=== PATIENT | male | born 1965 | race Caucasian/White ===

== ENCOUNTER 2017-06-18 21:41 | Inpatient (IN) | payer OTHER ==
[~2017-06-18] VITALS: Ht 180.3 cm; Wt 80.8 kg
[~2017-06-18 21:41] MED LIST: AMITRIPTYLINE H10 M1 PO; AMITRIPTYLINE H50 MG PO; CIPROFLOXACIN500 M1 PO; METHOCARBAMOL750 MG PO; OXYCONTIN10 MG PO; PERCOCET 10-321 EACH PO; PERCOCET 10/1 TABLET PO; VOLTAREN75 MG PO; ZOFRAN4 MG PO
[2017-06-18 22:28] LABS: HEMATOCRIT 35.5 % (38.0-50.0); HEMOGLOBIN 12.6 G/DL (12.5-16.6); MCH 30.1 PG (29.0-34.0); MCHC 35.5 G/DL (30.0-36.0); MCV 84.9 FL (86-99); PLATELET COUNT 206 K/uL (156-360); RBC DIS.WIDTH-CV 13.6 % (11.8-14.6); RBC DIS.WIDTH-SD 42.5 % (39-53); RED BLOOD COUNT 4.18 M/uL (4.00-5.50); WHITE BLOOD COUNT 10.3 K/uL (4.1-10.2)
[2017-06-18 22:36] LABS: ALBUMIN 3.1 g/dL (3.2-4.8); CHLORIDE 97 mEq/L (99-109); SODIUM 130 mEq/L (136-147)
[2017-06-18 22:38] LABS: GLUCOSE 128 mg/dL (70-99); TOTAL PROTEIN 6.5 g/dL (6.4-8.3)
[2017-06-18 22:40] LABS: TOTAL BILIRUBIN 0.5 mg/dL (0.0-1.0)
[2017-06-18 22:42] LABS: ALKALINE PHOSPHATASE 102 IU/L (3-129); CREATININE 13.4 mg/dL (0.6-1.3); GFR ESTIMATE (CALCULATED) 4 mL/min/ (58.99-99999)
[2017-06-18 22:43] LABS: AST (GOT) 14 IU/L (2-34)
[2017-06-18 22:45] LABS: ALT (GPT) 28 IU/L (3-49)
[2017-06-18 23:00] LABS: POTASSIUM 7.8 mEq/L (3.7-5.4); UREA NITROGEN (BUN) 100 mg/dL (9-23)
[2017-06-18 23:23] LABS: CREATINE KINASE 100 IU/L (1-294); TOTAL CK 100 IU/L (1-294)
[2017-06-18 23:29] LABS: CHLORIDE 99 mEq/L (99-109)
[2017-06-18 23:29] LABS: TROP-I INTERPRETATION NEGATIVE; TROPONIN-I 0.02 ng/mL (0.0-0.30)
[2017-06-18 23:30] LABS: SODIUM 130 mEq/L (136-147)
[2017-06-18 23:30] LABS: CK-MB 1.3 ng/mL (0.0-4.9); CKMB RELATIVE INDEX 1.3 (0.0-3.9)
[2017-06-18 23:31] LABS: GLUCOSE 130 mg/dL (70-99)
[2017-06-18 23:35] LABS: CREATININE 13.6 mg/dL (0.6-1.3); GFR ESTIMATE (CALCULATED) 4 mL/min/ (58.99-99999)
[2017-06-18 23:36] LABS: POTASSIUM 7.8 mEq/L (3.7-5.4); UREA NITROGEN (BUN) 105 mg/dL (9-23)
[2017-06-19 00:55] LABS: CHLORIDE 100 mEq/L (99-109); SODIUM 133 mEq/L (136-147)
[2017-06-19 00:56] LABS: MAGNESIUM 1.8 mg/dL (1.3-2.7)
[2017-06-19 01:01] LABS: CREATININE 13.7 mg/dL (0.6-1.3); GFR ESTIMATE (CALCULATED) 4 mL/min/ (58.99-99999); SERUM ETHYL ALCOHOL < 10 mg/dL
[2017-06-19 01:04] LABS: CREATINE KINASE 90 IU/L (1-294)
[2017-06-19 01:08] LABS: UREA NITROGEN (BUN) 105 mg/dL (9-23)
[2017-06-19 01:09] LABS: GLUCOSE 66 mg/dL (70-99); POTASSIUM 7.1 mEq/L (3.7-5.4)
[2017-06-19 01:57] VITALS: BP 129/57
[2017-06-19 05:08] VITALS: BP 121/58
[2017-06-19 05:58] LABS: HEMATOCRIT 29.6 % (38.0-50.0); MCH 29.1 PG (29.0-34.0); MCHC 33.8 G/DL (30.0-36.0); PLATELET COUNT 170 K/uL (156-360); RBC DIS.WIDTH-CV 13.8 % (11.8-14.6); RBC DIS.WIDTH-SD 43.5 % (39-53); RED BLOOD COUNT 3.44 M/uL (4.00-5.50); WHITE BLOOD COUNT 8.4 K/uL (4.1-10.2)
[2017-06-19 06:03] LABS: CREATININE 13.3 MG/DL (0.6-1.3); GFR ESTIMATE (CALCULATED) 4 mL/min/ (58.99-99999); SODIUM 133 MEQ/L (136-147); UREA NITROGEN (BUN) 97 mg/dL (9-23)
[2017-06-19 06:04] LABS: ALBUMIN 2.4 G/DL (3.2-4.8); CHLORIDE 97 MEQ/L (99-109); GLUCOSE 181 mg/dL (70-99); PHOSPHORUS 6.7 mg/dL (2.5-4.9)
[2017-06-19 06:07] LABS: POTASSIUM 6.7 MEQ/L (3.7-5.4)
[2017-06-19 07:27] VITALS: BP 106/56
[2017-06-19 11:35] VITALS: BP 130/60
[2017-06-19 13:19] LABS: HEPATITIS B SURFACE ANTIGEN Nonreactive
[2017-06-19 13:20] LABS: HEPATITIS B SURFACE ANTIBODY Nonreactive; HEPATITIS C ANTIBODY Nonreactive
[2017-06-19 13:21] LABS: ANTI-HEPATITIS A VIRUS (IGM) Nonreactive; ANTI-HEPATITIS B CORE (IGM) Nonreactive
[2017-06-19 16:15] VITALS: BP 124/57
[2017-06-19 19:56] VITALS: BP 155/70
[2017-06-20 04:01] VITALS: BP 165/72
[2017-06-20 06:17] LABS: HEMATOCRIT 31.7 % (38.0-50.0); HEMOGLOBIN 11.1 G/DL (12.5-16.6); MCH 29.8 PG (29.0-34.0); MCV 85.2 FL (86-99); NRBC (%) 0.2 /100 WBC (0-0); PLATELET COUNT 217 K/uL (156-360); RBC DIS.WIDTH-CV 13.6 % (11.8-14.6); RBC DIS.WIDTH-SD 42.2 % (39-53); RED BLOOD COUNT 3.72 M/uL (4.00-5.50); WHITE BLOOD COUNT 13.3 K/uL (4.1-10.2)
[2017-06-20 06:38] LABS: APPEARANCE TURBID ((CLEAR)); BILIRUBIN NEGATIVE; BLOOD LARGE; COLOR AMBER ((YELLOW)); GLUCOSE (STRIP) 50; KETONES NEGATIVE; LEUKOCYTES SMALL; NITRITE NEGATIVE; PROTEIN (STRIP) 100; UROBILINOGEN 0.2 MG/DL (0.2-1.0)
[2017-06-20 06:50] LABS: CHLORIDE 97 MEQ/L (99-109); CREATININE 10.3 MG/DL (0.6-1.3); GFR ESTIMATE (CALCULATED) 6 mL/min/ (58.99-99999); GLUCOSE 113 mg/dL (70-99); POTASSIUM 7.2 MEQ/L (3.7-5.4); SODIUM 134 MEQ/L (136-147); UREA NITROGEN (BUN) 68 mg/dL (9-23)
[2017-06-20 06:57] LABS: BASOPHIL (%) 0.2 % (0-1); EOSINOPHIL (%) 1.5 % (0-5); EOSINOPHIL COUNT 0.2 K/uL (0-0.3); IMMATURE GRANULOCYTE (%) 2.2 % (0.0-0.7); LYMPHOCYTE (%) 8.2 % (15-42); LYMPHOCYTE COUNT 1.1 K/uL (1.0-2.8); MONOCYTE (%) 15.5 % (3-12); MONOCYTE COUNT 2.1 K/uL (0-0.8); NEUTROPHIL (%) 72.4 % (45-76); NEUTROPHIL COUNT 9.7 K/uL (1.8-6.4)
[2017-06-20 07:05] VITALS: BP 163/72
[2017-06-20 07:06] LABS: UR CREATININE CONCENTRATION 158.5 MG/DL
[2017-06-20 07:23] LABS: EPITHELIAL CELLS 1+ /HPF; RED BLOOD CELLS TNTC /HPF (0-5); WHITE BLOOD CELLS 20-30 /HPF (0-5)
[2017-06-20 07:24] LABS: BACTERIA 3+ /HPF; MUCUS RARE /LPF
[2017-06-20 10:19] LABS: ANTI-HEPATITIS B CORE (TOTAL) Nonreactive
[2017-06-20 12:31] VITALS: BP 138/77
[2017-06-20 14:44] LABS: CHLORIDE 94 MEQ/L (99-109); GLUCOSE 138 mg/dL (70-99); SODIUM 133 MEQ/L (136-147)
[2017-06-20 14:46] LABS: GFR ESTIMATE (CALCULATED) 10 mL/min/ (58.99-99999); POTASSIUM 5.3 MEQ/L (3.7-5.4); UREA NITROGEN (BUN) 29 mg/dL (9-23)
[2017-06-20 15:20] VITALS: BP 130/70
[2017-06-20 19:26] VITALS: BP 136/67
[2017-06-20 21:56] LABS: HEMATOCRIT 29.1 % (38.0-50.0); HEMOGLOBIN 10.2 G/DL (12.5-16.6); MCV 85.3 FL (86-99)
[2017-06-21] VITALS (7 sets, daily range): BP systolic 128–146; BP diastolic 61–97
[2017-06-21 05:20] LABS: BASOPHIL (%) 0.3 % (0-1); EOSINOPHIL (%) 1.3 % (0-5); EOSINOPHIL COUNT 0.2 K/uL (0-0.3); HEMATOCRIT 28.3 % (38.0-50.0); HEMOGLOBIN 9.8 G/DL (12.5-16.6); IMMATURE GRANULOCYTE (%) 4.5 % (0.0-0.7); LYMPHOCYTE (%) 12.5 % (15-42); LYMPHOCYTE COUNT 1.6 K/uL (1.0-2.8); MCH 29.6 PG (29.0-34.0); MCHC 34.6 G/DL (30.0-36.0); MCV 85.5 FL (86-99); MONOCYTE (%) 15.5 % (3-12); NEUTROPHIL (%) 65.9 % (45-76); NEUTROPHIL COUNT 8.3 K/uL (1.8-6.4); PLATELET COUNT 210 K/uL (156-360); RBC DIS.WIDTH-CV 13.4 % (11.8-14.6); RBC DIS.WIDTH-SD 41.8 % (39-53); RED BLOOD COUNT 3.31 M/uL (4.00-5.50); WHITE BLOOD COUNT 12.7 K/uL (4.1-10.2)
[2017-06-21 05:55] LABS: C4 COMPLEMENT 29 MG/DL (10-40)
[2017-06-21 05:58] LABS: CHLORIDE 96 MEQ/L (99-109); GFR ESTIMATE (CALCULATED) 8 mL/min/ (58.99-99999); GLUCOSE 113 mg/dL (70-99); POTASSIUM 5.8 MEQ/L (3.7-5.4); SODIUM 130 MEQ/L (136-147)
[2017-06-21 06:05] LABS: UREA NITROGEN (BUN) 47 mg/dL (9-23)
[2017-06-21 06:17] LABS: STOOL OCCULT BLD 1ST SPECIMEN POSITIVE
[2017-06-21 09:57] LABS: HEMATOCRIT 27.7 % (38.0-50.0); HEMOGLOBIN 9.6 G/DL (12.5-16.6); MCV 85.5 FL (86-99)
[2017-06-21 17:21] LABS: C DIFF TOXIN NEGATIVE (NEGATIVE)
[2017-06-21 21:36] LABS: HEMATOCRIT 30.2 % (38.0-50.0); HEMOGLOBIN 10.3 G/DL (12.5-16.6); MCV 87.3 FL (86-99)
[2017-06-22] VITALS (7 sets, daily range): BP systolic 127–169; BP diastolic 60–79
[2017-06-22 05:38] LABS: ALBUMIN 2.6 G/DL (3.2-4.8); CHLORIDE 99 MEQ/L (99-109); CREATININE 6.7 MG/DL (0.6-1.3); GFR ESTIMATE (CALCULATED) 9 mL/min/ (58.99-99999); GLUCOSE 97 mg/dL (70-99); POTASSIUM 5.9 MEQ/L (3.7-5.4); SODIUM 133 MEQ/L (136-147); UREA NITROGEN (BUN) 40 mg/dL (9-23)
[2017-06-22 05:42] LABS: HEMATOCRIT 27.1 % (38.0-50.0); HEMOGLOBIN 9.3 G/DL (12.5-16.6); MCH 29.5 PG (29.0-34.0); MCHC 34.3 G/DL (30.0-36.0); PLATELET COUNT 236 K/uL (156-360); RBC DIS.WIDTH-CV 13.5 % (11.8-14.6); RBC DIS.WIDTH-SD 41.6 % (39-53); RED BLOOD COUNT 3.15 M/uL (4.00-5.50); WHITE BLOOD COUNT 15.3 K/uL (4.1-10.2)
[2017-06-22 06:40] LABS: ABS NEUTROPHIL COUNT 11.1; ATYPICAL LYMPHOCYTE 0.9 %; BAND NEUTROPHILS 2.7 % (0-8.0); EOSINOPHIL ABS CT 0.3; EOSINOPHILS 1.8 % (0-5.0); HYPOCHROMASIA 1+; LYMPHOCYTES 10.9 % (15.0-45.0); MONOCYTES 13.7 % (0-9.0); PLAT.SUFFICIENCY ADEQUATE; POLYCHROMASIA 3+
[2017-06-22 21:22] LABS: HEMATOCRIT 28.5 % (38.0-50.0); HEMOGLOBIN 9.6 G/DL (12.5-16.6); MCV 87.7 FL (86-99)
[2017-06-23 03:41] VITALS: BP 128/60
[2017-06-23 05:46] LABS: HEMATOCRIT 24.7 % (38.0-50.0); HEMOGLOBIN 8.5 G/DL (12.5-16.6); MCH 29.9 PG (29.0-34.0); MCHC 34.4 G/DL (30.0-36.0); PLATELET COUNT 229 K/uL (156-360); RBC DIS.WIDTH-CV 13.5 % (11.8-14.6); RBC DIS.WIDTH-SD 43.1 % (39-53); RED BLOOD COUNT 2.84 M/uL (4.00-5.50); WHITE BLOOD COUNT 13.4 K/uL (4.1-10.2)
[2017-06-23 06:16] LABS: CHLORIDE 96 MEQ/L (99-109); CREATININE 5.5 MG/DL (0.6-1.3); GFR ESTIMATE (CALCULATED) 12 mL/min/ (58.99-99999); GLUCOSE 115 mg/dL (70-99); POTASSIUM 4.6 MEQ/L (3.7-5.4); SODIUM 131 MEQ/L (136-147); UREA NITROGEN (BUN) 33 mg/dL (9-23)
[2017-06-23 06:33] LABS: EOSINOPHIL ABS CT 0.6; EOSINOPHILS 4.4 % (0-5.0); GIANT PLATELETS 1+; METAMYELOCYTES 0.9 %; MONOCYTES 5.2 % (0-9.0); MYELOCYTES 0.9 %; PLAT.SUFFICIENCY ADEQUATE; SEG.NEUTROPHILS 74.6 % (46.0-76.0); SMUDGE CELLS 3.5
[2017-06-23 07:36] VITALS: BP 139/71
[2017-06-23 11:07] VITALS: BP 140/63
[2017-06-23 17:56] VITALS: BP 137/67
[2017-06-23 19:40] VITALS: BP 132/69
[2017-06-23 20:19] LABS: HEMATOCRIT 25.1 % (38.0-50.0); HEMOGLOBIN 8.3 G/DL (12.5-16.6); MCH 28.9 PG (29.0-34.0); MCHC 33.1 G/DL (30.0-36.0); MCV 87.5 FL (86-99); PLATELET COUNT 268 K/uL (156-360); RBC DIS.WIDTH-CV 13.3 % (11.8-14.6); RBC DIS.WIDTH-SD 43.2 % (39-53); RED BLOOD COUNT 2.87 M/uL (4.00-5.50); WHITE BLOOD COUNT 16.1 K/uL (4.1-10.2)
[2017-06-23 22:50] VITALS: BP 139/67
[2017-06-24] VITALS (7 sets, daily range): BP systolic 88–140; BP diastolic 58–70
[2017-06-24 10:18] LABS: ALBUMIN 2.6 G/DL (3.2-4.8); CHLORIDE 99 MEQ/L (99-109); GFR ESTIMATE (CALCULATED) 7 mL/min/ (58.99-99999); GLUCOSE 158 mg/dL (70-99); PHOSPHORUS 5.4 mg/dL (2.5-4.9); POTASSIUM 4.2 MEQ/L (3.7-5.4); SODIUM 136 MEQ/L (136-147)
[2017-06-24 10:19] LABS: CREATININE 8.9 MG/DL (0.6-1.3); UREA NITROGEN (BUN) 53 mg/dL (9-23)
[2017-06-25 03:45] VITALS: BP 131/63
[2017-06-25 06:19] LABS: ALBUMIN 2.7 G/DL (3.2-4.8); CHLORIDE 101 MEQ/L (99-109); GFR ESTIMATE (CALCULATED) 9 mL/min/ (58.99-99999); PHOSPHORUS 4.7 mg/dL (2.5-4.9); POTASSIUM 4.7 MEQ/L (3.7-5.4); SODIUM 135 MEQ/L (136-147); UREA NITROGEN (BUN) 40 mg/dL (9-23)
[2017-06-25 06:23] LABS: CREATININE 7.1 MG/DL (0.6-1.3); GLUCOSE 111 mg/dL (70-99)
[2017-06-25 07:48] VITALS: BP 136/71
[2017-06-25 11:15] VITALS: BP 135/65
[2017-06-25 14:08] LABS: Neutrophil Cytoplasmic Aby Negative (Negative)
[2017-06-25 15:52] VITALS: BP 135/64
[2017-06-25 18:55] VITALS: BP 143/69
[2017-06-25 23:09] VITALS: BP 130/68
[2017-06-26 03:43] VITALS: BP 124/60
[2017-06-26 06:02] LABS: ALBUMIN 2.3 G/DL (3.2-4.8); CHLORIDE 100 MEQ/L (99-109); GFR ESTIMATE (CALCULATED) 6 mL/min/ (58.99-99999); GLUCOSE 107 mg/dL (70-99); PHOSPHORUS 6.2 mg/dL (2.5-4.9); POTASSIUM 4.9 MEQ/L (3.7-5.4); SODIUM 135 MEQ/L (136-147); UREA NITROGEN (BUN) 53 mg/dL (9-23)
[2017-06-26 06:03] LABS: CREATININE 9.3 MG/DL (0.6-1.3)
[2017-06-26 06:55] VITALS: BP 130/71
[2017-06-26 15:48] LABS: STOOL OCCULT BLD 1ST SPECIMEN POSITIVE
[2017-06-26 16:03] VITALS: BP 148/72
[2017-06-27 00:53] VITALS: BP 135/60
[2017-06-27 05:58] LABS: HEMATOCRIT 25.1 % (38.0-50.0); HEMOGLOBIN 8.1 G/DL (12.5-16.6); MCH 28.8 PG (29.0-34.0); MCHC 32.3 G/DL (30.0-36.0); MCV 89.3 FL (86-99); RBC DIS.WIDTH-CV 13.5 % (11.8-14.6); RBC DIS.WIDTH-SD 44.6 % (39-53); RED BLOOD COUNT 2.81 M/uL (4.00-5.50); WHITE BLOOD COUNT 11.6 K/uL (4.1-10.2)
[2017-06-27 06:06] LABS: PLATELET COUNT 410 K/uL (156-360)
[2017-06-27 06:20] LABS: ALBUMIN 2.8 G/DL (3.2-4.8); CHLORIDE 97 MEQ/L (99-109); CREATININE 10.1 MG/DL (0.6-1.3); GFR ESTIMATE (CALCULATED) 6 mL/min/ (58.99-99999); GLUCOSE 94 mg/dL (70-99); PHOSPHORUS 6.9 mg/dL (2.5-4.9); POTASSIUM 5.3 MEQ/L (3.7-5.4); SODIUM 134 MEQ/L (136-147); UREA NITROGEN (BUN) 58 mg/dL (9-23)
[2017-06-27 06:27] LABS: ABS NEUTROPHIL COUNT 7.7; BAND NEUTROPHILS 0.9 % (0-8.0); BASOPHILS 0.9 %; EOSINOPHIL ABS CT 0.3; EOSINOPHILS 2.6 % (0-5.0); LYMPHOCYTES 11.4 % (15.0-45.0); METAMYELOCYTES 0.9 %; MYELOCYTES 3.5 %; PLAT.SUFFICIENCY INCREASED; SEG.NEUTROPHILS 65.8 % (46.0-76.0)
[2017-06-27 07:42] VITALS: BP 111/64
[2017-06-27] MEDS ORDERED: DOXYCYCLINE HY100 M3 PO (09:07)
[2017-06-27] MEDS ORDERED: Tums,OsCal PO (09:07)
[2017-06-27] MEDS ORDERED: CALCIUM ACETAT667 MG PO (09:07)
[2017-06-27] MEDS ORDERED: TYLENOL REGULA325 MG PO (09:07)
[2017-06-27] MEDS ORDERED: FAMOTIDINE20 MG PO (09:07)
[2017-06-27 12:27] VITALS: BP 124/57
[2017-06-27 17:19] VITALS: BP 133/64
[2017-06-27 19:33] VITALS: BP 109/55
[2017-06-27 23:15] VITALS: BP 100/50
[2017-06-28] VITALS (7 sets, daily range): BP systolic 99–125; BP diastolic 58–76
[2017-06-28 06:48] LABS: HEMATOCRIT 21.7 % (38.0-50.0); HEMOGLOBIN 7.1 G/DL (12.5-16.6); MCH 29.7 PG (29.0-34.0); MCHC 32.7 G/DL (30.0-36.0); MCV 90.8 FL (86-99); PLATELET COUNT 343 K/uL (156-360); RBC DIS.WIDTH-CV 13.5 % (11.8-14.6); RBC DIS.WIDTH-SD 44.5 % (39-53); RED BLOOD COUNT 2.39 M/uL (4.00-5.50); WHITE BLOOD COUNT 8.5 K/uL (4.1-10.2)
[2017-06-28 07:23] LABS: BAND NEUTROPHILS 0.9 % (0-8.0); BASOPHILS 3.5 %; EOSINOPHIL ABS CT 0.2; EOSINOPHILS 2.6 % (0-5.0); HYPOCHROMASIA 1+; LYMPHOCYTES 11.3 % (15.0-45.0); METAMYELOCYTES 0.9 %; MONOCYTES 11.3 % (0-9.0); PLAT.SUFFICIENCY ADEQUATE; SEG.NEUTROPHILS 69.5 % (46.0-76.0)
[2017-06-28 12:12] LABS: CHLORIDE 104 MEQ/L (99-109); GFR ESTIMATE (CALCULATED) 9 mL/min/ (58.99-99999); GLUCOSE 123 mg/dL (70-99); POTASSIUM 4.6 MEQ/L (3.7-5.4); SODIUM 138 MEQ/L (136-147); UREA NITROGEN (BUN) 40 mg/dL (9-23)
[2017-06-28 12:15] LABS: CREATININE 6.6 MG/DL (0.6-1.3)
== END 2017-06-28 17:40 | disposition home or self-care (01) | DRG 683 ==
LOC: EME 21:41 → EDOF 23:44 → 2EAST 23:44 → 4EAST 23:44 → ENRESERV 23:48 → 4EAST 06-19 01:32 → ENRESERV 06-25 12:01 → 2EAST 06-25 15:13
PROVIDERS: Emergency Medicine; Family Medicine; Family Medicine Sports Medicine; Internal Medicine Gastroenterology; Internal Medicine Nephrology
DX: N17.9 Acute kidney failure, unspecified (principal); T39.395A Adverse effect of other nonsteroidal anti-inflammatory drugs [NSAID], initial encounter; E87.5 Hyperkalemia; E86.0 Dehydration; E87.1 Hypo-osmolality and hyponatremia; E87.2 Acidosis; E83.39 Other disorders of phosphorus metabolism; N39.0 Urinary tract infection, site not specified; K92.2 Gastrointestinal hemorrhage, unspecified; D50.0 Iron deficiency anemia secondary to blood loss (chronic); I12.0 Hypertensive chronic kidney disease with stage 5 chronic kidney disease or end stage renal disease; N18.6 End stage renal disease; D63.1 Anemia in chronic kidney disease; K21.9 Gastro-esophageal reflux disease without esophagitis; K29.70 Gastritis, unspecified, without bleeding; K25.7 Chronic gastric ulcer without hemorrhage or perforation; K29.80 Duodenitis without bleeding; K63.3 Ulcer of intestine; K64.8 Other hemorrhoids; F32.9 Major depressive disorder, single episode, unspecified; N40.0 Benign prostatic hyperplasia without lower urinary tract symptoms; E03.9 Hypothyroidism, unspecified; E78.00 Pure hypercholesterolemia, unspecified; E78.5 Hyperlipidemia, unspecified; F41.9 Anxiety disorder, unspecified; G89.29 Other chronic pain; M54.5 Low back pain; N28.1 Cyst of kidney, acquired; J30.9 Allergic rhinitis, unspecified; F10.20 Alcohol dependence, uncomplicated; F17.210 Nicotine dependence, cigarettes, uncomplicated; Z79.891 Long term (current) use of opiate analgesic
CPT/HCPCS: 71045; 74176; 76770; 80048; 80048 91; 80053; 80069; 80074; 81003; 82272; 82330; 82550; 82550 91; 82553; 82570; 83520 90; 83605; 83735; 84132 91; 84300; 84484; 85014; 85018; 85025; 85027; 86021 90; 86038; 86160; 86162 90; 86704; 86705; 86706; 86709; 86803; 86850; 86900; 86901; 86920; 87040; 87077; 87086; 87186; 87340; 87493; 87506; 87641; 88305; 88342 TC; 89190; 93005; 94640; 99281; 99285; C1750; C1752; G0480; J0610; J0690; J0696; J0881; J1644; J1815; J2250; J2405; J3010; J7030; J7050; P9016; S0020